=== PATIENT | male | born 1945 | race Caucasian/White ===

== ENCOUNTER 2018-07-20 06:58 | Observation (INO) | payer OTHER ==
[~2018-07-20] VITALS: Ht 172.7 cm; Wt 89.1 kg
--- NOTE | ~2018-07-20 | P ---
[facility] [place] [address] PROCEDURE REPORT Name: JASWINDER ALVARADO Room #: 215-P [facility] M..#: [id number] Admission: 07/20/18 ������������������ Attend Phys: Blaise Johns MD Discharge: ������������������ Date of : 49 Report #: [id number] THIS REPORT FOR: //name// CC: Dustin Johns PREOPERATIVE DIAGNOSES: 1. Syncope. 2. Third-degree heart block. PROCEDURES PERFORMED: Dual-chamber pacemaker implantation. HISTORY: The patient was a 73-year old with a history of 2 recent syncopal episodes. 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 He is here for a dual-chamber pacemaker implantation. ANESTHESIA: The patient underwent MAC anesthesia with no anesthesia related complications. DESCRIPTION OF PROCEDURE: The patient underwent informed consent. We discussed the details of the procedure including the risks, which include but not limited to bleeding, infection, vascular damage, cardiac perforation and pneumothorax. He understood these risks and is willing to proceed. The patient was brought to the EP laboratory in fasting and sedated state, prepped and draped in sterile fashion, underwent venogram showing patency of left axillary vein and received IV antibiotics. Next, lidocaine was injected below the level of left clavicle. Incision was made and a pocket was created over the prepectoral fascia and access was obtained twice to the left axillary vein using the extrathoracic approach. Sheaths were positioned using the modified Seldinger technique. Next, leads were positioned into the right ventricular mid septum in the right atrial appendage both with adequate pacing and sensing thresholds. The leads were sutured to the prepectoral fascia using Ethibond suture. Pocket was irrigated with vancomycin. The device was connected to the leads. The pocket was closed in 2 layers using 2-0 for the deep layer and 3-0 for the middle layer and surgical glue was placed to the outer skin layer. The patient awoke neurologically and hemodynamically intact. No complications and no significant bleeding. The implanted pacemaker was a Medtronic model #W3DR01, serial #[id number]. The atrial lead was a Medtronic model #5076, serial #[id number]. The RV lead was a Medtronic model #5076, 58 cm, serial #[id number]. The atrial lead demonstrated a P-wave of 1.8 millivolts, pacing impedance of 656 ohms and a pacing threshold of 0.5 volts at 0.4 milliseconds. The RV lead demonstrated R-wave of 11 millivolts, pacing impedance of 764 ohms and a pacing threshold of 0.5 volts at [facility] [address] [place] [address] PROCEDURE REPORT Name: JASWINDER ALVARADO Room #: 215-P [facility] M.R.#: [id number] Admission: 07/20/18 ������������������ Attend Phys: Blaise Johns MD Discharge: ������������������ Date of : 49 Report #: [id number] 0.5 milliseconds. The device was programmed to the AAIR/DDDR mode 60-130. CONCLUSIONS: 1. Successful dual-chamber pacemaker implantation. 2. Satisfactory atrial and ventricular pacing and sensing thresholds. ��������������������������������������������� ���������������������������������������� By: ��������������������������������������������� [id number] Blaise Johns MD /nt
[2018-07-20] MEDS ORDERED: ATORVASTATIN CA40 MG PO (07:24)
[2018-07-20] MEDS ORDERED: FERRO-SEQUELS1 EACH PO (07:27)
[2018-07-20] MEDS ORDERED: LISINOPRIL10 MG PO (07:28)
[2018-07-20] MEDS ORDERED: FISH OIL 1,001000 M2 PO (07:28)
[2018-07-20] MEDS ORDERED: ZANTAC 150MG T150 MG PO (07:29)
[2018-07-20] MEDS ORDERED: METFORMIN HCL500 MG PO (07:29)
[2018-07-20] MEDS ORDERED: VITAMIN D2000 UNIT PO (07:30)
[2018-07-20 07:37] LABS: ABSOLUTE NEUTROPHILS 5.8 thou/uL (1.4-8.2); BASOPHILS 0.5 % (0.0-2.0); EOSINOPHILS 2.7 % (0.0-3.0); HEMATOCRIT 45.4 % (42.0-52.0); HEMOGLOBIN 14.4 gm/dL (14.0-18.0); LYMPHOCYTES 22.3 % (24.0-44.0); MCH 21.7 pg (26.0-34.0); MCHC 31.6 g/dL (28.0-37.0); MCV 68.4 fL (80.0-100.0); MONOCYTES 6.3 % (1.0-8.0); PLATELET COUNT 244 thou/uL (150-400); POLYS 68.2 % (36.0-66.0); RBC 6.64 mil/uL (4.50-6.00); RDW 15.8 % (10.5-14.5); WBC 8.5 thou/uL (4.0-11.0)
[2018-07-20 07:42] VITALS: BP 165/97
[2018-07-20 07:42] LABS: CALCIUM 9.5 mg/dL (8.5-10.1); CREATININE 1.1 mg/dL (0.7-1.3); POTASSIUM 4.2 mmol/L (3.5-5.1)
[2018-07-20 07:49] LABS: ALBUMIN 4.1 g/dL (3.4-5.0); TOTAL BILIRUBIN 0.9 mg/dL (<0.1-1.0); TOTAL PROTEIN 7.5 g/dL (6.4-8.2)
[2018-07-20 08:00] LABS: APTT 27.8 Seconds (24.5-32.8); PROTIME 10.5 Seconds (9.3-11.4)
[2018-07-20 08:03] LABS: MICROCYTES 2+
--- NOTE | 2018-07-20 13:20 | NUR ---
PT RESTING QUIETLY. HOB ELEVATED STILL. AND LEFT ARM IMMOBILIZED. SLIGHT BRUISING NOTED AROUND PACEMAKER INSERTION SITE. NO BLEEDING OR DRAINAGE. DRESSING CLEAN DRY INTACT. PT ATE LUNCH. AT BEDSIDE. SR ON MONITOR. VSS. WAITING FOR ROOM ASSIGNMENT.
[2018-07-20 14:57] VITALS: BP 156/93
--- NOTE | 2018-07-20 15:53 | NUR ---
PATIENT TO THE UNIT POST PACEMAKER INSERTION. ORIENTED TO ROOM AND BEDSPACE. NO CO'S OF PAIN OR NAUSEA, KACY DIET AND FLUIDS. ASSESSMENT CHARTED. NO CO'S AT THE PRESENT TIME - AT THE BEDSIDE.
[2018-07-20 19:41] VITALS: BP 128/53
[2018-07-21 00:21] VITALS: BP 142/62
[2018-07-21 04:13] VITALS: BP 130/67
--- NOTE | 2018-07-21 05:11 | NUR ---
ASSESSMENT DOCUMENTED.PT BEEN RESTING IN NO ACUTE DISTRESS, AT BEDSIDE.A/OX4.VSS.S/P PACEMAKER PROCEDURE. LEFT CHEST INCISION INTACT.A-PACED MOST OF THE TIME ON MONITOR.IMMOBILIZER IN PLACE.VOIDING VIA URINAL.DENIES PAIN.POC IS TO HAVE CXR THIS AM WITH POSSIBLE DISCHARGE LATER IN THE DAY.
[2018-07-21 07:50] VITALS: BP 135/72
[2018-07-21 10:18] VITALS: BP 130/67
--- NOTE | 2018-07-21 11:00 | NUR ---
ASSESSMENT CHARTED - MEDS PER MAR - NO CO'S OF PAIN OR NAUSEA. KACY DIET AND FLUIDS. UP AD SUNDAY IN ROOM - INCISION SITE C/D/I. HOME THIS AM - INSTRUCTION RE HOME CARE / FOLLOW GIVEN TO PATIENT AND STATED UNDERSTANDING OF INSTRUCTION GIVEN. IV X 2 AND MONITOR D/C PRIOR TO DISCHARGE - LEFT UNIT VIA WHEELCAHIR - HOME VIA PVT VEHICLE ACCOMPANIED BY - NO CO'S AT TIME OF D/C.
== END 2018-07-21 10:41 | disposition home or self-care (01) ==
LOC: CATH 06:58 → 2N 14:54
PROVIDERS: ADMIT Internal Medicine Cardiovascular Disease
DX: I44.2 Atrioventricular block, complete (principal); R55 Syncope and collapse
CPT/HCPCS: 62110; 62900; 70005

== ENCOUNTER → 2020-11-20 | Outpatient (CLI) | payer OTHER ==
[~2020-11-20] MED LIST: ATORVASTATIN CA40 MG PO; FERRO-SEQUELS1 EACH PO; FISH OIL 1,001000 M2 PO; LISINOPRIL10 MG PO; METFORMIN HCL500 MG PO; VITAMIN D2000 UNIT PO; ZANTAC 150MG T150 MG PO
== END ==
LOC: SJCVC 11:36
PROVIDERS: ATTEND Nuclear Medicine Nuclear Cardiology
DX: I77.9 Disorder of arteries and arterioles, unspecified (principal); I10 Essential (primary) hypertension; E11.9 Type 2 diabetes mellitus without complications; E78.00 Pure hypercholesterolemia, unspecified; Z95.0 Presence of cardiac pacemaker; Z87.891 Personal history of nicotine dependence; Z72.89 Other problems related to lifestyle; Z79.82 Long term (current) use of aspirin; Z79.84 Long term (current) use of oral hypoglycemic drugs; Z79.899 Other long term (current) drug therapy

== ENCOUNTER → 2020-12-05 | Outpatient (CLI) | payer OTHER ==
[~2020-12-05] VITALS: Ht 175.3 cm; Wt 82.6 kg
[~2020-12-05] MED LIST changes: +ACID CONTROLLER20 MG PO; +ASPIRIN325 PO; +IRON325 PO; +LOPRESSOR50 MG PO; +PLAVIX 75 MG TA75 MG PO
[2020-12-05 08:32] VITALS: BP 155/77
[2020-12-05 09:01] LABS: HEMATOCRIT 43.5 % (42.0-52.0); HEMOGLOBIN 13.8 gm/dL (14.0-18.0); MCH 22.1 pg (26.0-34.0); MCHC 31.8 g/dL (28.0-37.0); MCV 69.4 fL (80.0-100.0); RBC 6.27 mil/uL (4.50-6.00); RDW 15.9 % (10.5-14.5); WBC 8.4 thou/uL (4.0-11.0)
[2020-12-05 09:13] LABS: CALCIUM 8.7 mg/dL (8.5-10.1); CREATININE 1.1 mg/dL (0.7-1.3); POTASSIUM 4.3 mmol/L (3.5-5.1)
[2020-12-05 14:20] LABS: URINE BILIRUBIN NEGATIVE (Negative); URINE BLOOD NEGATIVE (Negative); URINE CLARITY CLEAR; URINE COLOR YELLOW; URINE GLUCOSE-RANDOM* NEGATIVE (Negative); URINE KETONES NEGATIVE (Negative); URINE LEUKOCYTES-REFLEX NEGATIVE (Negative); URINE NITRITE-REFLEX NEGATIVE (Negative); URINE PROTEIN (DIPSTICK) NEGATIVE (Negative); URINE SPECIFIC GRAVITY <= 1.005 (1.005-1.035); URINE UROBILINOGEN 0.2 E.U./dl (0.2-1.0)
== END | disposition home or self-care (01) ==
LOC: CATH 07:52
PROVIDERS: Surgery Vascular Surgery; ATTEND Nuclear Medicine Nuclear Cardiology
DX: I65.23 Occlusion and stenosis of bilateral carotid arteries (principal); I70.1 Atherosclerosis of renal artery; I10 Essential (primary) hypertension; I73.9 Peripheral vascular disease, unspecified; M79.604 Pain in right leg; M79.605 Pain in left leg; E78.00 Pure hypercholesterolemia, unspecified; K21.9 Gastro-esophageal reflux disease without esophagitis; E11.9 Type 2 diabetes mellitus without complications; Z98.890 Other specified postprocedural states; Z79.899 Other long term (current) drug therapy; Z96.612 Presence of left artificial shoulder joint; Z87.891 Personal history of nicotine dependence; Z95.0 Presence of cardiac pacemaker; Z82.49 Family history of ischemic heart disease and other diseases of the circulatory system; Z79.82 Long term (current) use of aspirin

== ENCOUNTER → 2020-12-18 | Outpatient (CLI) | payer OTHER ==
[~2020-12-18] MED LIST changes: -ATORVASTATIN CA40 MG PO; +BLACK ELDERBER1 EACH PO; +LIPITOR40 MG PO; +VITAMIN D310 MC1 PO
[2020-12-18 11:34] LABS: ABSOLUTE NEUTROPHILS 5.3 thou/uL (1.4-8.2); BASOPHILS 0.6 % (0.0-2.0); EOSINOPHILS 3.4 % (0.0-3.0); HEMATOCRIT 42.8 % (42.0-52.0); HEMOGLOBIN 13.5 gm/dL (14.0-18.0); LYMPHOCYTES 19.2 % (24.0-44.0); MCH 21.9 pg (26.0-34.0); MCHC 31.6 g/dL (28.0-37.0); MCV 69.2 fL (80.0-100.0); MONOCYTES 6.1 % (1.0-8.0); POLYS 70.7 % (36.0-66.0); RBC 6.19 mil/uL (4.50-6.00); RDW 15.9 % (10.5-14.5); WBC 7.5 thou/uL (4.0-11.0)
[2020-12-18 11:45] LABS: INR 0.96; PROTIME 10.5 Seconds (10.5-12.1)
[2020-12-18 11:55] LABS: ALBUMIN 3.8 g/dL (3.4-5.0); CALCIUM 8.5 mg/dL (8.5-10.1); POTASSIUM 4.5 mmol/L (3.5-5.1); TOTAL BILIRUBIN 0.9 mg/dL (0.2-1.0); TOTAL PROTEIN 6.5 g/dL (6.4-8.2)
[2020-12-18 12:00] LABS: APTT 21.9 Seconds (24.5-32.8)
[2020-12-18 13:43] LABS: HYPOCHROMASIA SLIGHT; MICROCYTES 1+
[2020-12-18 13:46] LABS: LARGE PLATELETS RARE
[2020-12-18 13:47] LABS: PLATELET ESTIMATE NORMAL
[2020-12-18 13:48] LABS: PLATELET COUNT 205 thou/uL (150-400)
--- NOTE | 2020-12-18 15:14 | EKG ---
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
== END ==
LOC: PAC 10:44
PROVIDERS: ATTEND Surgery Vascular Surgery
DX: I65.21 Occlusion and stenosis of right carotid artery (principal); R91.8 Other nonspecific abnormal finding of lung field

== ENCOUNTER 2020-12-27 07:56 | Inpatient (IN) | payer OTHER ==
[2020-12-27] VITALS (12 sets, daily range): BP systolic 102–184; BP diastolic 43–74
[~2020-12-27] VITALS: Ht 175.3 cm; Wt 82.6 kg
--- NOTE | 2020-12-27 15:12 | NUR ---
PT ARRIVED FROM THE PACU VIA TWO PERSONALLE ESCORT, AT THE TIME OF ARRIVAL 1500, PT WAS ON CARDENE AT 10 AND LR RUNNING. PATIENT IS AOX4. AT THE TIME OF ARRIVAL NO DRESSING OVER THE R GROIN SITE, PACU STAFF MEMBERS AWARE, NO INDICATION KNOWN AT THIS TIME. GROIN SITE C/D/I,. NO EVIDENCE OF HEMATOMA, PATIENT IS TOLERATING PROCEDURE WELL NO REPORT OF PAIN. PATIENT IS HARD OF HEARING, STATES R EAR HAS BETTER FUNCTION, NO HEARING AID DUE TO INELLIGIBILITY. REPORTS ALL SENSATIONS INTACT. PULSES ARE PRESENT IN ALL EXTREMETIES. R GROIN/LEG DIRECTED TO IMMOBILIZE POSSIBLE AT THIS TIME. PATIENT BLOOD SUGAR ELEVATED, INITIATING INSULIN GTT PER ORDER. HOB AT 30 PER ORDER WELL.
[2020-12-28] VITALS (11 sets, daily range): BP systolic 104–127; BP diastolic 35–55
--- NOTE | 2020-12-28 00:15 | NUR ---
assumed patient care at approximately 2300.
--- NOTE | 2020-12-28 03:07 | NUR ---
CARE ASSUMED AT 0300. NO CHANGES IN PT STATUS AT THIS TIME.
[2020-12-28 05:20] LABS: HEMATOCRIT 36.1 % (42.0-52.0); HEMOGLOBIN 11.3 gm/dL (14.0-18.0); MCH 21.4 pg (26.0-34.0); MCHC 31.4 g/dL (28.0-37.0); MCV 68.3 fL (80.0-100.0); RBC 5.28 mil/uL (4.50-6.00); RDW 15.9 % (10.5-14.5); WBC 16.2 thou/uL (4.0-11.0)
[2020-12-28 05:36] LABS: CALCIUM 7.9 mg/dL (8.5-10.1); CREATININE 1.1 mg/dL (0.7-1.3); POTASSIUM 4.5 mmol/L (3.5-5.1)
--- NOTE | 2020-12-28 10:28 | NUR ---
PT ALERT AND ORIENTED TIMES THREE WITH PEIODS OF CONFUSION. VSS. IVF INFUSING PER ORDER. ART LINE AND WOODS BOTH REMOVED THIS MORNING. PT TOLERATES MEDS AND MEALS SO FAR. RIGHT GROIN SITE SOFT DRESSING C/D/I. PT UP SITTING IN THE CHAIR. PT AT BEDSIDE. POSSIBLE PLANS TO DISCHARGE TODAY.
[2020-12-29 03:56] VITALS: BP 154/72
--- NOTE | 2020-12-29 06:03 | NUR ---
PT AMBULATING TO BATHROOM INDEPENDENTLY AND IS TOLERATING WELL. TYLENOL PROVIDING PAIN RELIEF. PLAN FOR DISCHARGE HOME 12/29. RESTING COMFORTABLY. NO NEEDS VOICED. CALL LIGHT WITHIN REACH. FREQUENT OBSERVATION.
[2020-12-29 08:06] VITALS: BP 157/61
[2020-12-29 09:50] VITALS: BP 157/61
[2020-12-29 10:08] VITALS: BP 157/61
--- NOTE | 2020-12-29 10:27 | NUR ---
Assumed care of pt this AM. Pt A&O x4, on RA. Low fall precautions in place. Apaced on the monitor. Rt neck dressing C/D/I. Rt groin dressing C/D/I. Plan to discharge home today. IV & tele d/c'ed. Discharge education provided to pt & spouse. All questions answered. Pt wheeled to ER entrance.
== END 2020-12-29 12:01 | disposition home or self-care (01) | DRG 36 ==
LOC: PRE → TBA 07:56 → PRE 10:47 → ICU 14:41 → PRE 15:23 → 2N 12-28 16:00
PROVIDERS: Physician Assistant; ADMIT Surgery Vascular Surgery; ATTEND Surgery Vascular Surgery
PROC: 037K3DZ Dilation of Right Internal Carotid Artery with Intraluminal Device, Percutaneous Approach (ICD-10-PCS; principal; 2020-12-27)
PROC: B3131ZZ Fluoroscopy of Right Common Carotid Artery using Low Osmolar Contrast (ICD-10-PCS; principal; 2020-12-27)
DX: I65.23 Occlusion and stenosis of bilateral carotid arteries (principal); I10 Essential (primary) hypertension; E11.9 Type 2 diabetes mellitus without complications; E78.00 Pure hypercholesterolemia, unspecified; K21.9 Gastro-esophageal reflux disease without esophagitis; Z96.612 Presence of left artificial shoulder joint; K44.9 Diaphragmatic hernia without obstruction or gangrene; Z20.822 Contact with and (suspected) exposure to COVID-19; Z95.0 Presence of cardiac pacemaker; Z79.899 Other long term (current) drug therapy; Z79.82 Long term (current) use of aspirin; Z85.828 Personal history of other malignant neoplasm of skin; Z87.891 Personal history of nicotine dependence; Z82.49 Family history of ischemic heart disease and other diseases of the circulatory system
CPT/HCPCS: 10078; 10797; 47375; 50010; 50101; 50386; 50403; 50455; 51301; 52287; 54118; 56524; 56526; 56528; 56531; 62110; 62900; 65020; 70005

== ENCOUNTER → 2021-02-05 | Outpatient (CLI) | payer OTHER | LOC: SJCVCIMAG 07:37 | PROVIDERS: ATTEND Nuclear Medicine Nuclear Cardiology | DX: I65.21 Occlusion and stenosis of right carotid artery (principal); I77.9 Disorder of arteries and arterioles, unspecified; E78.00 Pure hypercholesterolemia, unspecified; I10 Essential (primary) hypertension; E11.9 Type 2 diabetes mellitus without complications; Z72.89 Other problems related to lifestyle; Z79.82 Long term (current) use of aspirin; Z79.84 Long term (current) use of oral hypoglycemic drugs; Z79.899 Other long term (current) drug therapy; Z87.891 Personal history of nicotine dependence; Z82.49 Family history of ischemic heart disease and other diseases of the circulatory system ==